=== PATIENT | male | born 1975 | race African-American/Black ===

== ENCOUNTER 2020-03-28 19:15 | Emergency (ER) | payer MEDICARE, OTHER ==
[~2020-03-28] VITALS: Ht 175.3 cm; Wt 76.2 kg
--- NOTE | 2020-03-28 19:35 | NUR ---
PATIENT ASK OF PATIENT PLAN OF SI. DENIES ANY PLAN STATING "I DON'T HAVE ANY RIGHT NOW."
--- NOTE | 2020-03-28 19:36 | NUR ---
PATIENT WAS ASK TO REMOVE CLOTHING AND PLACED HOSPITAL GOWN ON. PATIENT REFUSED TO STATING "I AM NOT SUICIDAL. I JUST WANT TO BE SEEN BY ER MD." [facility] CALLED TO ASK PATIENT TO PUT ON HOSPITAL GOWN PER PROTOCOL BUT PATIENT REFUSED AND ELOPED.
--- NOTE | 2020-03-28 19:39 | NUR ---
Patient eloped from facility. ER physician notified.
== END 2020-03-28 19:45 | disposition left against medical advice (07) ==
LOC: ER 19:23
DX: F31.30 Bipolar disorder, current episode depressed, mild or moderate severity, unspecified (principal); F15.10 Other stimulant abuse, uncomplicated; F41.9 Anxiety disorder, unspecified
CPT/HCPCS: A4663

== ENCOUNTER 2020-04-05 23:40 | Emergency (ER) | payer MEDICARE, OTHER ==
[~2020-04-05] VITALS: Ht 170.2 cm; Wt 68.0 kg
[2020-04-06] MEDS ORDERED: OXYCODONE/APAP 5-325 MG TABLET PO ONE
[2020-04-06] MEDS ORDERED: IBUPROFEN 600 MG TABLET PO ONE
[2020-04-06] MEDS ORDERED: OLANZAPINE 5 MG TABLET PO ONE
[2020-04-06] MEDS ORDERED: OXYC-128 PO (00:01)
[2020-04-06] MEDS ORDERED: OLAN5TAB3 PO (00:01)
[2020-04-06] MEDS ORDERED: IBUPROFEN 600 MG TABLET ONE (00:04)
[2020-04-06] MEDS ORDERED: OLANZAPINE 5 MG TABLET ONE (00:05)
[2020-04-06] MEDS ORDERED: IBUP-1955 PO (00:05)
[2020-04-06] MEDS ORDERED: OXYCODONE/APAP 5-325 MG TABLET ONE (00:05)
--- NOTE | 2020-04-06 00:10 | NUR ---
Patient given written and verbal discharge instructions. Patient verbalizes understanding of instructions. Patient is ambulatory with steady gait. Refuses offer of correction placement. Patient given list of available shelters in surrounding area. Homeless referral packet provided to patient, food, drinks, and socks. Patient A/Ox4, denies any SI/HI, or any A/V hallucinations. Patient is able to ambulate with steady gait. All belongings returned to patient prior to departure.
[2020-04-06 00:12] VITALS: BP 128/79
--- NOTE | 2020-04-06 00:12 | NUR ---
Patient will wait in waiting room in the AM for SW.
== END 2020-04-06 00:12 | disposition home or self-care (01) ==
LOC: ER 23:41
DX: M79.671 Pain in right foot (principal); M79.672 Pain in left foot; Z76.0 Encounter for issue of repeat prescription; G89.29 Other chronic pain; Z59.0 Homelessness; F31.9 Bipolar disorder, unspecified; F41.9 Anxiety disorder, unspecified

== ENCOUNTER 2020-04-18 03:02 | Emergency (ER) | payer MEDICARE, OTHER ==
[~2020-04-18] VITALS: Ht 165.1 cm; Wt 68.0 kg
[~2020-04-18 03:02] MED LIST: IBUP-1955 PO; OLAN5TAB3 PO; OXYC-128 PO
[2020-04-18] MEDS ORDERED: ONDANSETRON ODT 4 MG TAB.RAPDIS SL ONE (03:30)
[2020-04-18] MEDS ORDERED: ONDANSETRON ODT 4 MG TAB.RAPDIS ONE (03:32)
[2020-04-18] MEDS ORDERED: ONDA4TAB11 PO (03:41)
--- NOTE | 2020-04-18 03:54 | NUR ---
Patient given written and verbal discharge instructions. Patient verbalizes understanding of instructions. Patient is ambulatory with steady gait. Patient given list of available shelters in surrounding area.
[2020-04-18 03:55] VITALS: BP 140/76
== END 2020-04-18 03:56 | disposition home or self-care (01) ==
LOC: ER 03:05
DX: R11.0 Nausea (principal); Z59.0 Homelessness; F31.9 Bipolar disorder, unspecified; F41.9 Anxiety disorder, unspecified; Z79.899 Other long term (current) drug therapy
CPT/HCPCS: A4663; Q0162

== ENCOUNTER 2020-12-27 01:42 | Emergency (ER) | payer MEDICARE, OTHER ==
[~2020-12-27] VITALS: Ht 172.7 cm; Wt 70.3 kg
[~2020-12-27 01:42] MED LIST changes: +ONDA4TAB11 PO
--- NOTE | 2020-12-27 03:10 | NUR ---
No beds avilable in the ER. Patient sent back to waiting room.
[2020-12-27] MEDS ORDERED: ACET-2154 PO (04:43)
[2020-12-27 04:49] VITALS: BP 122/69
--- NOTE | 2020-12-27 04:49 | NUR ---
Patient discharged to home in stable condition. Written and verbal after care instructions given. Patient verbalizes understanding of instructions. Stressed follow up or return to ER for worsening s/s. Food + water given.
== END 2020-12-27 04:47 | disposition home or self-care (01) ==
LOC: ER 01:45
DX: M79.671 Pain in right foot (principal); Z59.00 Homelessness unspecified; F25.9 Schizoaffective disorder, unspecified; F31.9 Bipolar disorder, unspecified
CPT/HCPCS: A4663

== ENCOUNTER 2021-01-30 02:10 | Emergency (ER) | payer MEDICARE, OTHER ==
[~2021-01-30] VITALS: Ht 175.3 cm; Wt 68.0 kg
[~2021-01-30 02:10] MED LIST changes: +ACET-2154 PO
[2021-01-30] MEDS ORDERED: OXYC-128 PO (02:50)
--- NOTE | 2021-01-30 03:06 | NUR ---
Patient discharged to home in stable condition. Written and verbal after care instructions given. Patient verbalizes understanding of instructions. Stressed follow up or return to ER for worsening s/s.
[2021-01-30 03:11] VITALS: BP 150/88
== END 2021-01-30 03:11 | disposition home or self-care (01) ==
LOC: ER 02:13
DX: S99.921A Unspecified injury of right foot, initial encounter (principal); M79.671 Pain in right foot; X58.XXXA Exposure to other specified factors, initial encounter; Y92.410 Unspecified street and highway as the place of occurrence of the external cause; Z59.02 Unsheltered homelessness; F31.9 Bipolar disorder, unspecified
CPT/HCPCS: 73620; A4663

== ENCOUNTER 2021-02-12 04:45 | Emergency (ER) | payer MEDICARE, OTHER ==
[~2021-02-12] VITALS: Ht 170.2 cm; Wt 81.2 kg
--- NOTE | 2021-02-12 07:00 | NUR ---
Pt placed in room ED4A by door to door fundraising collector alexsander. Pt stable with laura vs and PE WNL.
--- NOTE | 2021-02-12 07:05 | NUR ---
EDMD at bedside to eval and assess pt condition.
--- NOTE | 2021-02-12 07:08 | NUR ---
EDMD ordered to soak bilat feet in warm water. Pt given 2 pudding cups (chocolate), 3 packs of eb crackers and two bread rolls with butter. Pt currently soaking feet in warm water.
[2021-02-12 09:31] VITALS: BP 127/89
[2021-02-13] MEDS ORDERED: IBUP-1955 PO (04:23)
== END 2021-02-12 08:00 | disposition home or self-care (01) ==
LOC: ER 04:48
DX: M79.671 Pain in right foot (principal); Z59.02 Unsheltered homelessness; S90.821A Blister (nonthermal), right foot, initial encounter; X58.XXXA Exposure to other specified factors, initial encounter; Y92.89 Other specified places as the place of occurrence of the external cause
CPT/HCPCS: A4663

== ENCOUNTER 2021-02-13 00:10 | Emergency (ER) | payer MEDICARE, OTHER ==
[~2021-02-13] VITALS: Ht 170.2 cm; Wt 81.2 kg
--- NOTE | 2021-02-13 00:40 | NUR ---
No beds available in the ER. Patient placed back in waiting room.
--- NOTE | 2021-02-13 02:44 | NUR ---
PATIENT WAS CALLED TO BE PLACED IN ROOM BUT STATED "I DON'T WANT TO BE SEEN ANYMORE." PATIENT WALKED OUT OF ER BUT CAME BACK IN AND SAT DOWN IN WAITING ROOM CHAIR.
[2021-02-13] MEDS: IBUPROFEN 600 MG TABLET PO ONE (04:23)
[2021-02-13] MEDS ORDERED: IBUP-1955 PO (04:23)
[2021-02-13] MEDS ORDERED: IBUPROFEN 600 MG TABLET ONE (04:29)
[2021-02-13 04:41] VITALS: BP 132/81
== END 2021-02-13 04:41 | disposition home or self-care (01) ==
LOC: ER 00:13
DX: M79.672 Pain in left foot (principal); M79.671 Pain in right foot; Z59.02 Unsheltered homelessness; F15.10 Other stimulant abuse, uncomplicated; R10.9 Unspecified abdominal pain
CPT/HCPCS: A4663

== ENCOUNTER 2021-07-25 13:38 | Emergency (ER) | payer MEDICARE, OTHER ==
--- NOTE | 2021-07-25 14:01 | NUR ---
PT LEFT WITHOUT BEEN TRIAGED.
[2021-07-25] MEDS ORDERED: NEOMY/BACITRA/POLYMYXIN B OINT UD PACKET TP ONE (14:15)
== END 2021-07-25 14:27 | disposition left against medical advice (07) ==
LOC: ER 13:38
DX: Z53.21 Procedure and treatment not carried out due to patient leaving prior to being seen by health care provider (principal)